=== PATIENT | female | born 1975 | race Caucasian/White ===

== ENCOUNTER 2018-05-01 15:22 | Inpatient (IN) | payer OTHER ==
[~2018-05-01] VITALS: Ht 165.1 cm; Wt 95.7 kg
[2018-05-01 15:41] VITALS: Ht 165.1 cm; Wt 95.7 kg
[2018-05-01 17:07] LABS: PLATELET COUNT 256 x10^3mcL (130-400)
[2018-05-01 17:16] LABS: RED CELL DISTRIBUTION WIDTH 16.4 % (11.5-14.5)
[2018-05-01 17:18] LABS: BAND NEUTROPHIL 0 % (0-10); BASOPHIL 0 % (0-2); MONOCYTE 5 % (0-7); PLATELET MORPHOLOGY PLATELETS NORMAL; SEGMENTED NEUTROPHILS 88 % (37-75); rbc morphology (normal/abnorm) ABNORMAL (NORMAL)
[2018-05-01 17:19] LABS: CALCIUM 8.3 mg/dL (8.5-10.1); CARBON DIOXIDE 18.1 mmol/L (21-32); CHLORIDE SERUM 101 mmol/L (98-107); CREATININE SERUM 0.9 mg/dL (0.6-1.0); GFR1 > 60 mL/min; GLUCOSE SERUM 195 mg/dL (74-106); POTASSIUM SERUM 3.4 mmol/L (3.5-5.1); SODIUM SERUM 133 mmol/L (136-145)
[2018-05-01 17:23] LABS: ALKALINE PHOSPHATASE 107 U/L (46-116); ALT/SGPT 30 U/L (14-59); AST/SGOT 12 U/L (15-37); BILIRUBIN TOTAL 0.3 mg/dL (0.20-1.00); TOTAL PROTEIN, SERUM 7.9 g/dL (6.4-8.2)
[2018-05-01 17:26] LABS: ALBUMIN 2.9 g/dL (3.4-5.0)
[2018-05-01] MEDS ORDERED: ENALAPRIL MALEA20 MG PO (17:53)
[2018-05-01] MEDS ORDERED: LANTUS SOLOS100 U/M1 (17:53)
[2018-05-01 18:52] LABS: AMPHETAMINE QUAL UR POSITIVE (See below)
[2018-05-01 19:29] LABS: MAGNESIUM 1.9 mg/dL (1.8-2.4); PHOSPHOROUS 2.3 mg/dL (2.5-4.9)
[2018-05-01 19:32] LABS: CHOLESTEROL/HDL RATIO 7.6
[2018-05-01 19:37] LABS: T3 TOTAL 0.82 ng/mL
[2018-05-01 19:56] VITALS: BP 136/80
[2018-05-01 19:59] LABS: FREE T4 0.96 ng/dL (0.76-1.46); FREE THYROXINE INDEX 1.8 ug/dL (1.4-4.5); T4(THYROXINE) 5.9 ug/dL (4.7-13.3)
[2018-05-01 21:19] LABS: UA SPECIFIC GRAVITY 1.025 (1.005-1.035); microscopic required? YES; urine erythrocyte TRACE (NEGATIVE)
[2018-05-02 05:32] VITALS: BP 109/65
[2018-05-02 06:19] LABS: CALCIUM 7.8 mg/dL (8.5-10.1); CARBON DIOXIDE 22.2 mmol/L (21-32); CHLORIDE SERUM 104 mmol/L (98-107); CREATININE SERUM 0.7 mg/dL (0.6-1.0); GFR1 > 60 mL/min; GLUCOSE SERUM 110 mg/dL (74-106); MAGNESIUM 1.8 mg/dL (1.8-2.4); POTASSIUM SERUM 3.4 mmol/L (3.5-5.1); SODIUM SERUM 136 mmol/L (136-145)
[2018-05-02 06:21] LABS: BASOPHIL % 0.2 % (0-2); PLATELET COUNT 255 x10^3mcL (130-400)
[2018-05-02 07:11] LABS: RED CELL DISTRIBUTION WIDTH 15.7 % (11.5-14.5)
[2018-05-02 10:06] VITALS: BP 119/67
[2018-05-02 13:15] VITALS: BP 112/69
[2018-05-02 17:42] VITALS: BP 152/86
[2018-05-02 21:10] VITALS: BP 131/74
[2018-05-03] VITALS (7 sets, daily range): BP systolic 131–164; BP diastolic 75–94
[2018-05-03 13:14] LABS: BASOPHIL % 0.5 % (0-2); PLATELET COUNT 354 x10^3mcL (130-400)
[2018-05-03 13:18] LABS: RED CELL DISTRIBUTION WIDTH 16.1 % (11.5-14.5)
[2018-05-04 05:57] VITALS: BP 172/96
[2018-05-04 09:35] VITALS: BP 140/93
[2018-05-04 13:20] VITALS: BP 151/87
[2018-05-04 17:20] VITALS: BP 158/95
[2018-05-04 17:40] LABS: ALKALINE PHOSPHATASE 285 U/L (46-116); ALT/SGPT 183 U/L (14-59); AST/SGOT 152 U/L (15-37); BILIRUBIN TOTAL 0.68 mg/dL (0.20-1.00); CALCIUM 8.8 mg/dL (8.5-10.1); CARBON DIOXIDE 24.3 mmol/L (21-32); CHLORIDE SERUM 103 mmol/L (98-107); CREATININE SERUM 0.7 mg/dL (0.6-1.0); GFR1 > 60 mL/min; GLUCOSE SERUM 105 mg/dL (74-106); SODIUM SERUM 138 mmol/L (136-145); TOTAL PROTEIN, SERUM 7.1 g/dL (6.4-8.2)
[2018-05-04 17:46] LABS: ALBUMIN 2.2 g/dL (3.4-5.0)
[2018-05-04 17:47] LABS: POTASSIUM SERUM 2.8 mmol/L (3.5-5.1)
[2018-05-04 18:49] LABS: BASOPHIL % 0.4 % (0-2); PLATELET COUNT 394 x10^3mcL (130-400); RED CELL DISTRIBUTION WIDTH 15.4 % (11.5-14.5)
[2018-05-05 06:34] VITALS: BP 159/94
[2018-05-05 08:26] LABS: BILIRUBIN DIRECT 0.42 mg/dL (0.0-0.2); BILIRUBIN TOTAL 0.6 mg/dL (0.20-1.00); TOTAL PROTEIN, SERUM 6.7 g/dL (6.4-8.2)
[2018-05-05 08:59] LABS: ALBUMIN 2.1 g/dL (3.4-5.0)
[2018-05-05 10:52] VITALS: BP 151/91
[2018-05-05 12:31] LABS: BASOPHIL % 0.6 % (0-2)
[2018-05-05 12:41] LABS: PLATELET COUNT 423 x10^3mcL (130-400); RED CELL DISTRIBUTION WIDTH 15.4 % (11.5-14.5)
[2018-05-05 12:46] VITALS: BP 165/95
[2018-05-05 12:47] LABS: CALCIUM 8.8 mg/dL (8.5-10.1); CARBON DIOXIDE 28.8 mmol/L (21-32); CHLORIDE SERUM 104 mmol/L (98-107); CREATININE SERUM 0.8 mg/dL (0.6-1.0); GFR1 > 60 mL/min; GLUCOSE SERUM 167 mg/dL (74-106); POTASSIUM SERUM 3.3 mmol/L (3.5-5.1); SODIUM SERUM 137 mmol/L (136-145)
[2018-05-05 18:11] VITALS: BP 108/101
[2018-05-05 20:48] VITALS: BP 153/89
[2018-05-06 04:35] VITALS: BP 164/92
== END 2018-05-06 07:20 | disposition left against medical advice (07) | DRG 710 ==
LOC: ED 15:22 → DU 18:13
PROVIDERS: Emergency Medicine; Family Medicine; Internal Medicine; Surgery
PROC: 0S9C0ZZ Drainage of Right Knee Joint, Open Approach (ICD-10-PCS; principal; 2018-05-04 18:00)
DX: A41.9 Sepsis, unspecified organism (principal); N17.0 Acute kidney failure with tubular necrosis; L02.415 Cutaneous abscess of right lower limb; L03.115 Cellulitis of right lower limb; E11.65 Type 2 diabetes mellitus with hyperglycemia; E83.39 Other disorders of phosphorus metabolism; R65.20 Severe sepsis without septic shock; I16.0 Hypertensive urgency; E87.6 Hypokalemia; E78.1 Pure hyperglyceridemia; E78.5 Hyperlipidemia, unspecified; F15.10 Other stimulant abuse, uncomplicated; R80.9 Proteinuria, unspecified; F17.210 Nicotine dependence, cigarettes, uncomplicated; Z68.35 Body mass index [BMI] 35.0-35.9, adult
CPT/HCPCS: 83880; 84439; 99406; J0696; J1644; J1885; J2175; J2250; J2270; J2405; J2543; J2704; J3010; J3370; J3490; J7030; J7040; Q0092